=== PATIENT | male | born 1945 | race Caucasian/White ===

== ENCOUNTER 2025-03-16 08:04 | Outpatient (RCR) | payer MEDICARE, MEDICAID, SELFPAY | END 2025-05-03 12:21 | disposition home or self-care (01) | LOC: HO.WCC 08:04 | PROVIDERS: PCP Internal Medicine; Visit Provider Surgery | DX: E11.628 Type 2 diabetes mellitus with other skin complications (principal); I70.221 Atherosclerosis of native arteries of extremities with rest pain, right leg; E11.22 Type 2 diabetes mellitus with diabetic chronic kidney disease; I12.9 Hypertensive chronic kidney disease with stage 1 through stage 4 chronic kidney disease, or unspecified chronic kidney disease; E11.51 Type 2 diabetes mellitus with diabetic peripheral angiopathy without gangrene; N18.1 Chronic kidney disease, stage 1; Z79.4 Long term (current) use of insulin; Z79.84 Long term (current) use of oral hypoglycemic drugs | CPT/HCPCS: 99214 ==